=== PATIENT | male | born 1955 | race Caucasian/White ===

== ENCOUNTER 2024-05-16 22:33 | Emergency (ER) | payer OTHER, MEDICARE ==
[2024-05-16 22:47] VITALS: BP 150/96; PULSE 66; RESP 14; TEMP 98.6; BMI 27.3
== END 2024-05-16 23:12 | disposition home or self-care (01) ==
LOC: FER 22:33
DX: H11.32 Conjunctival hemorrhage, left eye (principal); R22.32 Localized swelling, mass and lump, left upper limb
CPT/HCPCS: 99283-25